=== PATIENT | female | born 1950 | race Caucasian/White ===

== ENCOUNTER 2016-08-03 13:14 | Outpatient (CLI) ==
[2015-02-12 10:30] VITALS: BMI 18.8
[2016-08-03 13:58] LABS: BASOPHILS # (AUTO) 0.1 K/uL (0-0.2); BASOPHILS % (AUTO) 0.9 % (0.0-3.0); EOSINOPHILS # (AUTO) 0.2 K/ul (0.0-0.7); EOSINOPHILS % (AUTO) 3.4 % (0.0-7.0); HEMOGLOBIN 14.7 g/dl (12.0-16.0); IMMATURE GRANULOCYTE % (AUTO) 0.2 % (0.0-5.0); LYMPHOCYTES # (AUTO) 2.5 K/uL (0.60-3.4); MEAN CORPUSCULAR HEMOGLOBIN 28.7 pg (27.0-31.0); MEAN CORPUSCULAR HGB CONC 32.7 (31.8-35.4); MEAN CORPUSCULAR VOLUME 87.9 fl (81.0-99.0); MONOCYTES # (AUTO) 0.6 K/uL (0.4-2.0); MONOCYTES % (AUTO) 8.7 (0-10); NEUTROPHILS # (AUTO) 3.2 K/ul (2.0-6.9); NEUTROPHILS % (AUTO) 48.8; PLATELET COUNT 281 10^3/uL (140-440); RED BLOOD COUNT 5.12 10^6/ul (4.20-5.40); WHITE BLOOD COUNT 6.53 K/ul (4.6-10.2)
[2016-08-03 14:17] LABS: ALBUMIN/GLOBULIN RATIO 1.14; ANION GAP 13.3; BILIRUBIN,TOTAL 0.78 mg/dL (0.00-1.20); BUN/CREATININE RATIO 13.48; CALCIUM 9.7 mg/dL (8.2-10.2); CREATININE 0.89 mg/dL (0.60-1.30); POTASSIUM 4.3 mmol/L (3.5-5.10); TOTAL PROTEIN 7.5 g/dL (5.8-8.1)
[2016-08-06 08:57] LABS: VITAMIN D25 50.1 ng/mL (30.0-100.0)
== END 2016-08-03 13:15 | disposition home or self-care (01) ==
LOC: LAB 13:14
PROVIDERS: ATTEND Family Medicine
DX: E55.9 Vitamin D deficiency, unspecified (principal); M81.0 Age-related osteoporosis without current pathological fracture; Z00.00 Encounter for general adult medical examination without abnormal findings; Z79.899 Other long term (current) drug therapy
CPT/HCPCS: 36415; 80053; 80061; 82306; 85025; 86803

== ENCOUNTER 2016-10-23 11:43 | Outpatient (CLI) ==
[2015-02-12 10:30] VITALS: BMI 18.8
== END 2016-10-23 11:44 | disposition home or self-care (01) ==
LOC: LAB 11:43
PROVIDERS: ATTEND Family Medicine
DX: M81.0 Age-related osteoporosis without current pathological fracture (principal)
CPT/HCPCS: 36415; 82306

== ENCOUNTER 2017-01-21 11:26 | Outpatient (CLI) ==
[2015-02-12 10:30] VITALS: BMI 18.8
[2017-01-21 11:58] LABS: BASOPHILS # (AUTO) 0.1 K/uL (0-0.2); BASOPHILS % (AUTO) 0.9 % (0.0-3.0); EOSINOPHILS # (AUTO) 0.2 K/ul (0.0-0.7); EOSINOPHILS % (AUTO) 3.4 % (0.0-7.0); HEMATOCRIT 41.1 % (37.0-47.0); HEMOGLOBIN 13.7 g/dl (12.0-16.0); IMMATURE GRANULOCYTE % (AUTO) 0.3 % (0.0-5.0); LYMPHOCYTES # (AUTO) 2.8 K/uL (0.60-3.4); LYMPHOCYTES % (AUTO) 41.1 (10.0-50.0); MEAN CORPUSCULAR HEMOGLOBIN 29.3 pg (27.0-31.0); MEAN CORPUSCULAR HGB CONC 33.3 (31.8-35.4); MONOCYTES # (AUTO) 0.5 K/uL (0.4-2.0); NEUTROPHILS # (AUTO) 3.1 K/ul (2.0-6.9); NEUTROPHILS % (AUTO) 46.3; PLATELET COUNT 270 10^3/uL (140-440); RED BLOOD COUNT 4.67 10^6/ul (4.20-5.40); WHITE BLOOD COUNT 6.76 K/ul (4.6-10.2)
[2017-01-21 12:33] LABS: ALBUMIN 3.7 g/dL (3.4-5.0); ALBUMIN/GLOBULIN RATIO 1.16; ANION GAP 11.3; BILIRUBIN,TOTAL 0.7 mg/dL (0.00-1.20); CALCIUM 9.6 mg/dL (8.2-10.2); CHOL/HDL RATIO 3.3 (4.5-5.5); CREATININE 0.8 mg/dL (0.60-1.30); POTASSIUM 4.3 mmol/L (3.5-5.10); TOTAL PROTEIN 6.9 g/dL (5.8-8.1)
== END 2017-01-21 11:27 | disposition home or self-care (01) ==
LOC: LAB 11:26
PROVIDERS: ATTEND Family Medicine
DX: E55.9 Vitamin D deficiency, unspecified (principal); Z00.00 Encounter for general adult medical examination without abnormal findings
CPT/HCPCS: 36415; 80053; 80061; 82306; 85025

== ENCOUNTER 2017-02-04 08:16 | Outpatient (CLI) ==
[2015-02-12 10:30] VITALS: BMI 18.8
--- NOTE | 2017-02-04 09:18 | US ---
EXAM: ULTRASOUND ABDOMEN LIMITED HISTORY: Right upper quadrant pain FINDINGS: Ultrasound abdomen, limited. Liver size was normal at 12 cm. The liver parenchyma demons trated normal sonographic appearance without evidence of intrahepatic biliary dilatation or focal le winnie. Patent and hepatopedal main portal vein. No evidence of gallbladder stones or sludge. Gallbladder wall thickness was normal at 0.24 centimet ers and the common duct diameter normal at 0.26 centimeters. The visualized portions of the pancreas appeared unremarkable. IMPRESSION: Findings within normal limits.
== END 2017-02-04 08:17 | disposition home or self-care (01) ==
LOC: RAD 08:16
PROVIDERS: ATTEND Family Medicine
DX: R10.11 Right upper quadrant pain (principal)

== ENCOUNTER 2017-04-25 12:44 | Outpatient (CLI) ==
[2015-02-12 10:30] VITALS: BMI 18.8
[2017-04-25 13:52] LABS: CHOL/HDL RATIO 3.3 (4.5-5.5)
== END 2017-04-25 12:45 | disposition home or self-care (01) ==
LOC: LAB 12:44
PROVIDERS: ATTEND Family Medicine
DX: E78.2 Mixed hyperlipidemia (principal); E55.9 Vitamin D deficiency, unspecified
CPT/HCPCS: 36415; 80061; 82306

== ENCOUNTER 2017-07-24 11:12 | Outpatient (CLI) ==
[2015-02-12 10:30] VITALS: BMI 18.8
== END 2017-07-24 11:13 | disposition home or self-care (01) ==
LOC: LAB 11:12
PROVIDERS: ATTEND Family Medicine
DX: E55.9 Vitamin D deficiency, unspecified (principal); E78.5 Hyperlipidemia, unspecified
CPT/HCPCS: 36415; 80061; 82306

== ENCOUNTER 2017-09-17 13:58 | Outpatient (CLI) | payer OTHER ==
[2015-02-12 10:30] VITALS: BMI 18.8
--- NOTE | 2017-09-18 08:28 | MRI ---
EXAM: Cervical spine MRI without contrast. HISTORY: Cervical radiculopathy. COMPARISON: Cervical spine radiographs 02/12/2015. TECHNIQUE: Multiplanar, multisequence MR images were acquired of the cervical spine without contrast . FINDINGS: There is mild accentuation of the usual cervical lordosis with dorsal tilting of the odont oid. There is 1.5 mm anterolisthesis of C4 on C5 and C7 on T1. There is ventral spondylosis with mil d disc space narrowing and degenerative endplate changes at C3-4. At C5-6 and C6-7, there is a moder ate disc osteophyte complex with moderate disc space narrowing and degenerative endplate changes. Th e cervical vertebra are generally normal in height and intrinsic bone marrow signal. 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 There are no paravertebral masses. Visualized lung apices are clear. C2-3: There is a minor posterior disc osteophyte complex and mild bilateral facet arthropathy. Ther e is probable mild to moderate right and mild left foraminal stenosis. Detail is limited by angulati on of the axial images at this level. C3-4: There is a posterior disc osteophyte complex, bilateral uncovertebral hypertrophy and moderate left hypertrophic facet arthropathy with irregularity of the articular surfaces of the left facet tabby int and a tiny left facet effusion. There is mild right and probable moderate left neural foraminal stenosis. Detail is limited by angulation of the axial images at this level. There is no central ca nal stenosis. C4-5: There is anterolisthesis of C4 on C5 which produces a pseudo disc bulge. Moderate bilateral h ypertrophic facet arthropathy is present with irregularity of the articular surfaces of both facet tabby ints. There is mild left neural foraminal stenosis. No central canal stenosis is present. C5-6: There is a posterior disc osteophyte complex, bilateral uncovertebral hypertrophy and bilatera l facet arthropathy, greater on the left. There is probable moderate left and moderately severe righ t foraminal stenosis. No central canal stenosis is present. C6-7: There is a posterior disc osteophyte complex with a more focal left paracentral component that effaces the ventral thecal sac. Bilateral uncovertebral hypertrophy is present, greater on the left and there is mild left neural foraminal stenosis. C7-T1: There is anterolisthesis of C7 on T1 and there is a pseudo disc bulge and a small poorly visu alized central disc protrusion. Mild bilateral facet arthropathy is present and there is minor right neural foraminal stenosis. There is no central canal stenosis. IMPRESSION: 1. Mild accentuation usual cervical lordosis with dorsal tilting of the odontoid. 2. Mild to moderate cervical degenerative spondylosis without central canal stenosis. 3. Probable multilevel foraminal stenosis. Cervical CT or CT myelography may be helpful to further define the osseous anatomy.
== END 2017-09-17 13:59 | disposition home or self-care (01) ==
LOC: RAD 13:58
PROVIDERS: ATTEND Clinical Nurse Specialist Adult Health
DX: M54.13 Radiculopathy, cervicothoracic region (principal)

== ENCOUNTER 2017-10-01 15:00 | Outpatient (CLI) ==
[2015-02-12 10:30] VITALS: BMI 18.8
== END 2017-10-01 15:01 | disposition home or self-care (01) ==
LOC: LAB 15:00
PROVIDERS: ATTEND Family Medicine
DX: E78.5 Hyperlipidemia, unspecified (principal); E55.9 Vitamin D deficiency, unspecified
CPT/HCPCS: 36415; 80061; 82306

== ENCOUNTER 2018-01-27 09:32 | Outpatient (CLI) ==
[2015-02-12 10:30] VITALS: BMI 18.8
== END 2018-01-27 09:33 | disposition home or self-care (01) ==
LOC: LAB 09:32
PROVIDERS: ATTEND Family Medicine
DX: E55.9 Vitamin D deficiency, unspecified (principal); E78.5 Hyperlipidemia, unspecified
CPT/HCPCS: 36415; 80061; 82306